=== PATIENT | male | born 1940 | race Caucasian/White ===

== ENCOUNTER → 2017-05-23 | Outpatient (CLI) | payer MEDICARE ==
[~2017-05-23] MED LIST: ASPI-1471 PO; ATOR20TA65 PO; BISO5TAB23 PO; GLIM4TAB50 PO; METF-420 PO; OMEG500C7 PO; OMEP40CA48 PO; [UNRECOGNIZED DRUG - REMARK]
== END ==
LOC: LAB 10:34
PROVIDERS: ATTEND Internal Medicine Cardiovascular Disease
DX: I50.9 Heart failure, unspecified (principal); I71.9 Aortic aneurysm of unspecified site, without rupture
CPT/HCPCS: 36415; 82310; 82374; 82435; 82565; 82947; 84132; 84295; 84520

== ENCOUNTER → 2017-05-28 | Outpatient (CLI) | payer MEDICARE ==
[~2017-05-28] MED LIST changes: +IOPAMIDOL 76% 100 ML INFUS BTL 100 ML ONE
--- NOTE | 2017-05-28 13:53 | RADIOLOGY IMAGING REPORT ---
[place] [facility] [place] NAME: Aba Ballard : 1940 MR: [id number] V: [id number] EXAM DATE: ORDERING PHYSICIAN: ROHIT MCDONOUGH TECHNOLOGIST: Location: [facility] Patient: Aba Ballard : 1940 Visit/Account:[id number] Date of Sevice: 05/28/2017 CTA of the chest with IV contrast EXAMINATION: CT angiogram of the thoracic aorta with IV contrast History: Thoracic aortic aneurysm, history of mitral valve and tricuspid valve replacements TECHNIQUE: Bolus thin section axial scans were obtained during maximal arterial opacification throu gh the chest. Reconstruction of the source data set includes mulitplanar 2D in the sagittal and coron al planes, and 3D coronal thin slab MIP series. Fruit Worker images have been stored on PACS. EKG g ating was used. One of the following dose optimization techniques was utilized in the performance of this exam: Autom ated exposure control; adjustment of the mA and/or kV according to the patient's size; or use of an i terative reconstruction technique. Specific details can be referenced in the facility's radiology C T exam operational policy. Contrast: 100 mL of IV Isovue-370. COMPARISON STUDIES: none. FINDINGS: Angiographic findings: Thoracic aorta: General Description : There is mild aneurysmal dilation of the mid ascending thoracic aorta gloria uring 4.2 cm maximally. No evidence for aortic dissection. Measurements: Sinotubular Junction : 3.2 cm Mid Ascending Aorta : 4.2 x 3.9 cm Proximal Aortic Arch : 3.2 cm Distal Aortic Arch : 2.5 cm Mid Descending Aorta : 2.5 cm Other vasculature: Postoperative changes are noted from mitral valve and tricuspid valve replacemen ts. There appears to be chronic partially calcified thrombus in the left atrium tracking into the left at rial appendage. The thrombus measures approximately 7.1 x 3.6 x 5.3 cm. Myocardial thinning involvi ng the left ventricular apex is noted. Coronary artery calcification is also noted.. Incidentally n oted is a bovine arch. Additional non-angiographic findings: There may be some nonobstructing stones in both kidneys. The osseous structures demonstrate a scoliosis with degenerative changes. Healed left anterior rib f ractures are noted. IMPRESSION: 1. Small ascending thoracic aneurysm measuring 4.2 cm maximally. No evidence for dissection. 2. Postoperative changes are noted from mitral valve and tricuspid valve replacements. 3. Chronic partially calcified thrombus is noted in the left atrium extending in the left atrial gal endage. Results were called to ROHIT MCDONOUGH at 05/28/2017 1:48 PM. Report Dictated By: Pieter Murillo MD at 05/28/2017 12:53 PM Report E-Signed By: Pieter Murillo MD at 05/28/2017 1:49 PM WSN:[id number]
== END ==
LOC: RAD 01:55
PROVIDERS: ATTEND Internal Medicine Cardiovascular Disease
DX: I71.2 Thoracic aortic aneurysm, without rupture (principal); Z95.2 Presence of prosthetic heart valve; I51.3 Intracardiac thrombosis, not elsewhere classified
CPT/HCPCS: 71275; Q9967

== ENCOUNTER 2017-07-25 15:50 | Emergency (ER) | payer MEDICARE ==
[~2017-07-25 15:50] MED LIST changes: -IOPAMIDOL 76% 100 ML INFUS BTL 100 ML ONE; -METF-420 PO; +METF-421 PO
--- NOTE | 2017-07-25 16:13 | ER Report ---
History and Physical Time Seen By MD: 16:13 Hx. of Stated Complaint: sent here by doc for rapid heart rate. no cp, has sob HPI/ROS CHIEF COMPLAINT: New-onset A. fib HISTORY OF PRESENT ILLNESS: This is a 76-year-old male who presents to the emergency department from his primary care provider's office for new-onset A. fib. Patient states that over the last 2 weeks he's had some increased cramping in his lower extremities more so when he is ambulating when he is resting seems to be okay. Patient did follow up with his primary care provider today they did some blood work and EKG and noted that his heart rate was irregular and in the 140s to 170s, Dr. Holly said this is a new onset atrial fibrillation. Patient was sent to the emergency department for further evaluation. Patient arrives alert and oriented and not short of breath, patient states he is only short of breath with ambulation. Patient denies history of atrial fibrillation. Patient denies chest pain although he does state he has some bandlike shortness of breath when he is ambulating. Patient is currently on oxygen. Patient has no other complaints. No nausea, vomiting, diarrhea, aches, chills or visual changes. REVIEW OF SYSTEMS: Constitutional: No fever, no chills. Eyes: No discharge. ENT: No sore throat. Cardiovascular: As above. Respiratory: As above. Gastrointestinal: No abdominal pain, no vomiting. Genitourinary: No hematuria. Musculoskeletal: No back pain. Skin: No rashes. Neurological: No headache. Allergies: Coded Allergies: No Known Drug Allergies (Verified , 07/25/17) Home Meds Active Scripts Diltiazem Hcl (DILTIAZEM 24HR CD) 180 Mg Cap.er.24h, 180 MG PO DAILY for 30 Days , #30 CAP Prov:JUVENAL ALMEIDA [facility]- 07/25/17 Rivaroxaban 20 Mg (XARELTO 20 MG) 20 Mg Tablet, 20 MG PO DAILY for 30 Days, #30 TAB 0 Refills Prov:JUVENAL ALMEIDA [facility]- 07/25/17 Reported Medications [place]-3 Fatty Acids (FISH OIL) 500 Mg Capsule, 500 MG PO, CAPSULE 04/06/15 Aspirin (ASPIR 81) 81 Mg Tablet.dr, 81 MG PO QDAY, TAB 04/06/15 Omeprazole (OMEPRAZOLE) 40 Mg Capsule.dr, 40 MG PO QDAY, CAP 04/06/15 Bisoprolol Fumarate (BISOPROLOL FUMARATE) 5 Mg Tablet, 5 MG PO QDAY, #10 TAB 04/06/15 Atorvastatin Calcium (ATORVASTATIN CALCIUM) 20 Mg Tablet, 1 TAB PO QDAY, TAB 04/06/15 Glimepiride (GLIMEPIRIDE) 4 Mg Tablet, 4 MG PO QDAY 04/06/15 Metformin Hcl (METFORMIN HCL) 1,000 Mg Tablet, 1 TAB PO BID, TAB 04/06/15 Past Medical/Surgical History The patient has a past medical and surgical history of hypercholesterolemia, hypertension, heart attack, sinus infections, GERD, prostate cancer, arthritis, radiation therapy for prostate cancer, tonsillectomy. Reviewed Nurses Notes: Yes Constitutional Vital Sign - Last 24 Hours 07/25/17 07/25/17 07/25/17 07/25/17 15:57 15:58 16:00 16:05 Pulse 167 149 Resp 20 22 B/P (MAP) 130/94 (106) 130/94 119/100 (106) Pulse Ox 88 O2 Delivery Room Air 07/25/17 07/25/17 07/25/17 07/25/17 16:18 16:20 16:30 16:35 Pulse 156 144 Resp 28 B/P (MAP) 107/93 (98) Pulse Ox 94 O2 Flow Rate 1.0 07/25/17 07/25/17 07/25/17 07/25/17 16:46 16:50 17:00 17:05 Pulse 147 121 Resp 29 19 B/P (MAP) 98/89 (92) 112/92 (99) Pulse Ox 93 93 07/25/17 07/25/17 07/25/17 07/25/17 17:20 17:35 17:40 17:55 Pulse 139 147 137 ??? Resp 30 24 27 Pulse Ox 93 93 07/25/17 07/25/17 07/25/17 07/25/17 18:00 18:10 18:25 18:30 Pulse 126 115 138 Resp 28 30 36 B/P (MAP) 117/85 (96) 119/86 (97) Pulse Ox 94 95 96 07/25/17 07/25/17 07/25/17 07/25/17 18:31 18:32 18:36 18:51 Pulse 120 131 112 Resp 26 28 23 B/P (MAP) 116/83 (94) Pulse Ox 95 90 93 07/25/17 07/25/17 07/25/17 07/25/17 19:00 19:06 19:21 19:30 Pulse 131 118 Resp 31 26 B/P (MAP) 105/92 (96) 101/84 (90) Pulse Ox 95 95 07/25/17 19:36 Pulse 128 Resp 22 Pulse Ox 92 Physical Exam General Appearance: The patient is alert, has no immediate need for airway protection and no signs of toxicity. Eyes: Pupils equal and round no pallor or injection. ENT, Mouth: Mucous membranes are moist. Respiratory: There are no retractions, lungs are clear to auscultation. Cardiovascular: A regular rate and rhythm, mechanical click, aortic valve replacement, no rubs. Gastrointestinal: Abdomen is soft and non tender, no masses, bowel sounds normal. Neurological: Alert and oriented 4. Moving all extremities. Following all commands. No focal neuro deficits. Skin: Warm and dry, no rashes. Musculoskeletal: Neck is supple non tender. Extremities are nontender, nonswollen and have full range of motion. DIFFERENTIAL DIAGNOSIS: After history and physical exam differential diagnosis was considered for shortness of breath including but not limited to pulmonary infectious process, COPD, asthma, pulmonary embolus and congestive heart failure.chest pain including but not limited to myocardial ischemia, pericarditis pulmonary embolus, chest wall pain, pleural inflammation and pulmonary infectious causes. Medical Decision Making Data Points Result Diagram: 07/25/17 1610 07/25/17 1610 Laboratory Hematology Test 07/25/17 16:10 Red Blood Count 4.61 M/uL (4.00-5.60) Mean Corpuscular Volume 94.1 fL (80.0-96.0) Mean Corpuscular Hemoglobin 32.4 pg (26.0-33.0) Mean Corpuscular Hemoglobin Concent 34.5 g/dL (32.0-36.0) Red Cell Distribution Width 14.2 % (11.5-14.5) Mean Platelet Volume 8.4 fL (7.2-11.1) Neutrophils (%) (Auto) 68.0 % (39.4-72.5) Lymphocytes (%) (Auto) 22.6 % (17.6-49.6) Monocytes (%) (Auto) 8.5 % (4.1-12.4) Eosinophils (%) (Auto) 0.5 % (0.4-6.7) Basophils (%) (Auto) 0.4 % (0.3-1.4) Nucleated RBC Relative Count (auto) 0.1 /100WBC Neutrophils # (Auto) 4.7 K/uL (2.0-7.4) Lymphocytes # (Auto) 1.6 K/uL (1.3-3.6) Monocytes # (Auto) 0.6 K/uL (0.3-1.0) Eosinophils # (Auto) 0.0 K/uL (0.0-0.5) Basophils # (Auto) 0.0 K/uL (0.0-0.1) Nucleated RBC Absolute Count (auto) 0.01 K/uL D-Dimer Quantitative (PE/DVT) 3.63 ug/ml (0-0.50) Sodium Level 140 mmol/L (137-145) Potassium Level 3.8 mmol/L (3.5-5.0) Chloride Level 103 mmol/L (98-107) Carbon Dioxide Level 20 mmol/L (22-30) Blood Urea Nitrogen 30 mg/dl (9-21) Creatinine 1.20 mg/dl (0.66-1.25) Glomerular Filtration Rate Calc 58.6 Random Glucose 206 mg/dl (75-110) Calcium Level 9.2 mg/dl (8.4-10.2) Total Bilirubin 1.3 mg/dl (0.2-1.3) Aspartate Amino Transf (AST/SGOT) 32 U/L (0-35) Alanine Aminotransferase (ALT/SGPT) 36 U/L (0-56) Alkaline Phosphatase 58 U/L (0-126) Troponin I < 0.012 ng/ml B-Type Natriuretic Peptide 244 pg/ml (0-100) Total Protein 7.0 gm/dl (6.3-8.2) Albumin 4.1 g/dl (3.5-5.0) Chemistry Test 07/25/17 16:10 White Blood Count 6.9 k/uL (4.5-11.0) Red Blood Count 4.61 M/uL (4.00-5.60) Hemoglobin 15.0 g/dL (14.0-18.0) Hematocrit 43.4 % (42.0-52.0) Mean Corpuscular Volume 94.1 fL (80.0-96.0) Mean Corpuscular Hemoglobin 32.4 pg (26.0-33.0) Mean Corpuscular Hemoglobin Concent 34.5 g/dL (32.0-36.0) Red Cell Distribution Width 14.2 % (11.5-14.5) Platelet Count 182 K/uL (150-450) Mean Platelet Volume 8.4 fL (7.2-11.1) Neutrophils (%) (Auto) 68.0 % (39.4-72.5) Lymphocytes (%) (Auto) 22.6 % (17.6-49.6) Monocytes (%) (Auto) 8.5 % (4.1-12.4) Eosinophils (%) (Auto) 0.5 % (0.4-6.7) Basophils (%) (Auto) 0.4 % (0.3-1.4) Nucleated RBC Relative Count (auto) 0.1 /100WBC Neutrophils # (Auto) 4.7 K/uL (2.0-7.4) Lymphocytes # (Auto) 1.6 K/uL (1.3-3.6) Monocytes # (Auto) 0.6 K/uL (0.3-1.0) Eosinophils # (Auto) 0.0 K/uL (0.0-0.5) Basophils # (Auto) 0.0 K/uL (0.0-0.1) Nucleated RBC Absolute Count (auto) 0.01 K/uL D-Dimer Quantitative (PE/DVT) 3.63 ug/ml (0-0.50) Glomerular Filtration Rate Calc 58.6 Calcium Level 9.2 mg/dl (8.4-10.2) Total Bilirubin 1.3 mg/dl (0.2-1.3) Aspartate Amino Transf (AST/SGOT) 32 U/L (0-35) Alanine Aminotransferase (ALT/SGPT) 36 U/L (0-56) Alkaline Phosphatase 58 U/L (0-126) Troponin I < 0.012 ng/ml B-Type Natriuretic Peptide 244 pg/ml (0-100) Total Protein 7.0 gm/dl (6.3-8.2) Albumin 4.1 g/dl (3.5-5.0) Coagulation Test 07/25/17 16:10 D-Dimer Quantitative (PE/DVT) 3.63 ug/ml EKG/Imaging EKG Interpretation 12 lead EKG: Time of EKG, 1600. Rhythm: Atrial fibrillation with RVR, rate 161 bpm. [place]: normal QRS: Right bundle branch block ST segments: No ST depression or elevation identified. No previous EKGs to compare to. 12 lead EKG: Time of repeat EKG 1857. Rhythm: Atrial fibrillation, RVR, ventricular rate 114 bpm. [place]: normal QRS: Right bundle branch block. ST segments: No ST depression or elevation identified. Imaging Location: Patient: Aba Ballard : 1940 Visit/Account:[id number] Date of Sevice: 07/25/2017 EXAMINATION: CTA of the chest with IV contrast HISTORY: Shortness of breath. New onset atrial fibrillation. Elevated d-dimer. TECHNIQUE: Pulmonary embolus protocol - Thin axial CT images of the chest were obtained with IV contrast during maximal pulmonary arterial opacification. Reconstruction of the source data includes multiplanar 2D coronal and sagittal reconstructed images, and 3D coronal and sagittal MIP images. Unloader images have been stored on PACS. One of the following dose optimization techniques was utilized in the performance of this exam: Automated exposure control; adjustment of the mA and/ or kV according to the patient's size; or use of an iterative reconstruction technique. Specific details can be referenced in the facility's radiology CT exam operational policy. Contrast: 100 mL of IV Isovue-370. COMPARISON: 05/28/2017. FINDINGS: Pulmonary arteries: The pulmonary arteries are well opacified, without suspicious filling defect. Heart, aorta, and great vessels: Stable mild aneurysmal dilatation of the ascending thoracic aorta, measuring 4.2 cm. Mild cardiac enlargement. Sternotomy with mitral and tricuspid valve replacements. Stable appearance of partially calcified and chronic-appearing mural thrombus in the left atrium and extending into the atrial appendage. No pericardial effusion. Lungs and pleura: There is a new moderate sized layering right pleural effusion , measuring up to 5.8 cm in AP thickness. Adjacent atelectasis in the right lower lobe posteriorly and inferiorly. Superimposed infiltrate is not excluded. The left lung is clear. The central airways are patent. Mediastinum and sharon: Small hiatal hernia. Visualized upper abdomen: Bilateral nonobstructing renal calculi in the partially visualized kidneys. Trace perisplenic and perihepatic fluid in the upper abdomen. Chest wall: Negative. Bones: No acute osseous findings. Multilevel degenerative changes throughout the spine. IMPRESSION: 1. No evidence of pulmonary embolism. 2. New moderate layering right pleural effusion. Adjacent atelectasis in the right lower lobe. Superimposed infiltrate is not excluded. 3. No other acute findings in the chest. 4. Postoperative changes with prior mitral and tricuspid valve replacement. 5. Stable appearance of chronic and partially calcified mural thrombus in the left atrium extending into the left atrial appendage. Report Dictated By: Hung Hale MD at 07/25/2017 6:22 PM Report E-Signed By: Hung Hale MD at 07/25/2017 6:29 PM [id number] ED Course/Re-evaluation Clinical Indication for ER IV: Hydration, IV Access ED Course 07/25/2017 4:35:29 pm patient has a chads 2 score of 3 points recommendation of anticoagulation. The patient was admitted to a room. A history of a score obtained. Differential diagnoses were considered. An IV was started. A CBC, CMP, troponin, BNP were obtained. D-dimer was obtained. CBC unremarkable. Chemistry showing BUN 30, blood sugar 206. EKG showing atrial fibrillation, RVR, right bundle branch block , initial rate was 160s to 170s. D-dimer was elevated at 3.63. I did review the lab studies and the elevated d-dimer with the patient initially was going to proceed with a chest x-ray but did forego the x-ray and proceeded with the CTA of the chest. Patient was given a total of 20 mg IV diltiazem which did bring the heart rate down to around [address] of the chest is showing no evidence of pulmonary embolism however it does show a new moderate layering right pleural effusion, chastened atelectasis in the right lower lobe with a possible superimposed infiltrate. Stable appearance of chronic and partially calcified thrombus in the left atrium extending into the left atrial appendage. I did review these results with the patient and my suggestion was with the new onset atrial fibrillation and the CT results that the patient consider inpatient evaluation for the A. fib and possible aspiration of the pleural effusion. The patient states he cannot stay in the hospital, he takes care of his at home and does not have anybody else here in town to help manage her care. I did discuss and review this case with Dr. Colby and he felt that it would be okay to send the patient home as long as the patient follows up with his primary care provider with close observation. I did tell the patient that we 'll need to start anticoagulation I did start him on 20 mg by mouth Xarelto as well as rate control for his atrial fibrillation started him on 180 mg of diltiazem. A prescription was sent to the patient's pharmacy for the Xarelto and diltiazem as well. The patient was instructed to call his primary care provider's office tomorrow for a follow-up in the morning or early next week. The patient was also instructed to return immediately for any increased shortness of breath, chest pain or any other concerning changes. Patient was in agreement with this plan of care and discharged home. Decision to Disposition Date: July 25, 2017 Decision to Disposition Time: 19:20 Depart Departure Latest Vital Signs Vital Signs Date Time Temp Pulse Resp B/P (MAP) Pulse Ox O2 Delivery O2 Flow Rate FiO2 07/25/17 19:36 128 22 92 07/25/17 19:30 101/84 (90) 07/25/17 16:18 1.0 07/25/17 15:58 Room Air Impression: Primary Impression: New onset atrial fibrillation Additional Impression: Pleural effusion Condition: Improved Disposition: HOME OR SELF-CARE Referrals: LILIA ORTIZ MD (PCP) New Scripts Diltiazem Hcl (DILTIAZEM 24HR CD) 180 Mg Cap.er.24h 180 MG PO DAILY for 30 Days, #30 CAP Prov: JUVENAL ALMEIDA [employer]- 07/25/17 Rivaroxaban 20 Mg (XARELTO 20 MG) 20 Mg Tablet 20 MG PO DAILY for 30 Days, #30 TAB 0 Refills Prov: JUVENAL ALMEIDA [facility]- 07/25/17 Patient Instructions: A-fib (Atrial Fibrillation) (ED), Diltiazem (AFib), Pleural Effusion (ED) Additional Instructions: Drink plenty of water. Get plenty of rest. Take the Xarelto 20 mg daily, you must follow-up with your primary care provider within 1-7 days. Take the diltiazem 180 mg extended release once a day, he must follow-up with your primary care provider within 1-7 days for reevaluation. Follow-up with Dr. Holly or Michele tomorrow. They will likely need to repeat a chest x-ray. You will likely need to have Your primary care provider order an echocardiogram too and follow up with a residential treatment counselor. Please return to the Ed for increased shortness of breath or chest pain or any other concerns. 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
[2017-07-25] MEDS ORDERED: NS(*) 0.9% 500 ML BAG 500 ML IV ONE (16:20)
[2017-07-25] MEDS ORDERED: DILTIAZEM 5 MG/ML 5ML IVPUSH IVP ONE (16:20)
--- NOTE | 2017-07-25 16:26 | EKG ---
FACILITY: [facility] PATIENT NAME: REYNA SOLIMAN : [id number] MR: [id number] V: [id number] EXAM DATE: ORDERING PHYSICIAN: JUVENAL ALMEIDA TECHNOLOGIST: MARY Mueller Reason : TACHYCARDIA Blood Pressure : / mmHG Vent. Rate : 161 BPM Atrial Rate : 104 BPM P-R Int : 000 ms QRS Dur : 138 ms QT Int : 330 ms P-R-T Axes : 000 -22 002 degrees QTc Int : 540 ms Atrial fibrillation with rapid ventricular response Right bundle branch block Abnormal ECG No previous ECGs available Confirmed by JESUS GOODE ([id number]) on 07/25/2017 7:16:53 PM Referred By: SHAHBAZ Confirmed By:JESUS GOODE
[2017-07-25 16:31] LABS: PLATELET COUNT, AUTOMATED 182 K/uL (150-450)
[2017-07-25] MEDS ORDERED: NS 0.9% 150 ML BAG 150 ML ONE (17:41)
[2017-07-25] MEDS ORDERED: IOPAMIDOL 76% 100 ML INFUS BTL 100 ML ONE (17:41)
--- NOTE | 2017-07-25 18:33 | RADIOLOGY IMAGING REPORT ---
FACILITY: [facility] PATIENT NAME: Aba Ballard : 1940 MR: [id number] V: [id number] EXAM DATE: ORDERING PHYSICIAN: JUVENAL ALMEIDA TECHNOLOGIST: Location: [facility] [place] Patient: Aba Ballard : 1940 Visit/Account:[id number] Date of Sevice: 07/25/2017 EXAMINATION: CTA of the chest with IV contrast HISTORY: Shortness of breath. New onset atrial fibrillation. Elevated d-dimer. TECHNIQUE: Pulmonary embolus protocol - Thin axial CT images of the chest were obtained with IV con trast during maximal pulmonary arterial opacification. Reconstruction of the source data includes mul tiplanar 2D coronal and sagittal reconstructed images, and 3D coronal and sagittal MIP images. Repres entative images have been stored on PACS. One of the following dose optimization techniques was utilized in the performance of this exam: Autom ated exposure control; adjustment of the mA and/or kV according to the patient's size; or use of an i terative reconstruction technique. Specific details can be referenced in the facility's radiology C T exam operational policy. Contrast: 100 mL of IV Isovue-370. COMPARISON: 05/28/2017. FINDINGS: Pulmonary arteries: The pulmonary arteries are well opacified, without suspicious filling defect. Heart, aorta, and great vessels: Stable mild aneurysmal dilatation of the ascending thoracic aorta, measuring 4.2 cm. Mild cardiac enlargement. Sternotomy with mitral and tricuspid valve replacements. Stable appearance of partially calcified and chronic-appearing mural thrombus in the left atrium and extending into the atrial appendage. No pericardial effusion. Lungs and pleura: There is a new moderate sized layering right pleural effusion, measuring up to 5.8 cm in AP thickness. Adjacent atelectasis in the right lower lobe posteriorly and inferiorly. Superim posed infiltrate is not excluded. The left lung is clear. The central airways are patent. Mediastinum and sharon: Small hiatal hernia. Visualized upper abdomen: Bilateral nonobstructing renal calculi in the partially visualized kidneys . Trace perisplenic and perihepatic fluid in the upper abdomen. Chest wall: Negative. Bones: No acute osseous findings. Multilevel degenerative changes throughout the spine. IMPRESSION: 1. No evidence of pulmonary embolism. 2. New moderate layering right pleural effusion. Adjacent atelectasis in the right lower lobe. Superi mposed infiltrate is not excluded. 3. No other acute findings in the chest. 4. Postoperative changes with prior mitral and tricuspid valve replacement. 5. Stable appearance of chronic and partially calcified mural thrombus in the left atrium extending i nto the left atrial appendage. Report Dictated By: Hung Hale MD at 07/25/2017 6:22 PM Report E-Signed By: Hung Hale MD at 07/25/2017 6:29 PM [id number]
[2017-07-25] MEDS ORDERED: RIVAROXABAN 10 MG TAB PO ONE ×2 (19:15→19:20)
[2017-07-25] MEDS ORDERED: DILTIAZEM CD 180 MG CAPCR PO ONE (19:15)
[2017-07-25] MEDS ORDERED: DILT180C4 PO (19:22)
[2017-07-25] MEDS ORDERED: RIVA20TA PO (19:22)
[2017-07-25 19:30] VITALS: BP 101/84
--- NOTE | 2017-07-25 19:43 | EKG ---
FACILITY: [facility] [place] PATIENT NAME: REYNA SOLIMAN : [id number] MR: [id number] V: [id number] EXAM DATE: ORDERING PHYSICIAN: JUVENAL ALMEIDA TECHNOLOGIST: SHUBHAM Test Reason : S/P A FIB Blood Pressure : / mmHG Vent. Rate : 114 BPM Atrial Rate : 127 BPM P-R Int : 000 ms QRS Dur : 144 ms QT Int : 388 ms P-R-T Axes : 000 006 -02 degrees QTc Int : 534 ms Atrial fibrillation with rapid ventricular response Right bundle branch block Abnormal ECG When compared with ECG of 25-JUL-2017 16:00, No significant change was found Confirmed by JESUS GOODE ([id number]) on 07/25/2017 8:51:21 PM Referred By: Confirmed By:JESUS GOODE
== END 2017-07-25 19:47 | disposition home or self-care (01) ==
LOC: ER 16:16
DX: I48.91 Unspecified atrial fibrillation (principal); J90 Pleural effusion, not elsewhere classified; I45.10 Unspecified right bundle-branch block; R94.31 Abnormal electrocardiogram [ECG] [EKG]
CPT/HCPCS: 83880; 84443; 84484; 85025; 85379; 93005; 96361; 96374; 99284; A9270; J3490; J7040; Q9967; 71275; 82040; 82247; 82310; 82374; 82435; 82565; 82947; 84075; 84132; 84155; 84295; 84450; 84460; 84520

== ENCOUNTER 2017-07-30 13:18 | Emergency (ER) | payer MEDICARE ==
[~2017-07-30 13:18] MED LIST changes: +DILT180C4 PO; +RIVA20TA PO
--- NOTE | 2017-07-30 13:26 | ER Report ---
History and Physical Time Seen By MD: 13:26 HPI/ROS CHIEF COMPLAINT: Rapid heart rate HISTORY OF PRESENT ILLNESS: This is a 76-year-old male who presents to the emergency department for a rapid heart rate. Patient was seen and evaluated in the emergency Department last week, diagnosed with new onset A. fib sent home with some relative and diltiazem, he did follow-up with his primary care provider and also did schedule a follow-up with cardiology. According to the patient he was also supposed to be on home oxygen however the person that's introverted the home oxygen did not contact him. He is been using his 's oxygen at home which does make him feel better". Patient denies chest pain he does however have intermittent shortness of breath or exertional. Patient has had intermittent nausea and vomiting and intermittent diarrhea however today he states he is feeling okay. No blood in any of the diarrhea or emesis. No aches or chills, no rashes no headaches or confusion. REVIEW OF SYSTEMS: Constitutional: No fever, no chills. Eyes: No discharge. ENT: No sore throat. Cardiovascular: No chest pain, no palpitations. Respiratory: As above. Gastrointestinal: As above. Genitourinary: No hematuria. Musculoskeletal: No back pain. Skin: No rashes. Neurological: No headache. Allergies: Coded Allergies: No Known Drug Allergies (Verified , 07/25/17) Home Meds Active Scripts Diltiazem Hcl (DILTIAZEM 24HR CD) 180 Mg Cap.er.24h, 180 MG PO DAILY for 30 Days , #30 CAP Prov:JUVENAL ALMEIDA [facility]- 07/25/17 Rivaroxaban 20 Mg (XARELTO 20 MG) 20 Mg Tablet, 20 MG PO DAILY for 30 Days, #30 TAB 0 Refills Prov:JUVENAL ALMEIDA [facility]- 07/25/17 Reported Medications [place]-3 Fatty Acids (FISH OIL) 500 Mg Capsule, 500 MG PO, CAPSULE 04/06/15 Aspirin (ASPIR 81) 81 Mg Tablet.dr, 81 MG PO QDAY, TAB 04/06/15 Omeprazole (OMEPRAZOLE) 40 Mg Capsule.dr, 40 MG PO QDAY, CAP 04/06/15 Bisoprolol Fumarate (BISOPROLOL FUMARATE) 5 Mg Tablet, 5 MG PO QDAY, #10 TAB 04/06/15 Atorvastatin Calcium (ATORVASTATIN CALCIUM) 20 Mg Tablet, 1 TAB PO QDAY, TAB 04/06/15 Glimepiride (GLIMEPIRIDE) 4 Mg Tablet, 4 MG PO QDAY 04/06/15 Metformin Hcl (METFORMIN HCL) 1,000 Mg Tablet, 1 TAB PO BID, TAB 04/06/15 Past Medical/Surgical History The patient has a past medical and surgical history of hypercholesterolemia, hypertension, heart attack, sinus infections, GERD, prostate cancer, arthritis, radiation therapy for prostate cancer, tonsillectomy. Reviewed Nurses Notes: Yes Hx Substance Use Disorder: No Hx Alcohol Use: No Constitutional Vital Sign - Last 24 Hours 07/30/17 07/30/17 07/30/17 07/30/17 13:18 13:23 13:25 13:30 Temp 97.7 Pulse ??? 170 Resp 16 B/P (MAP) 135/97 (110) 135/92 ???/??? (1665) Pulse Ox 85 O2 Delivery Room Air 07/30/17 07/30/17 07/30/17 07/30/17 13:33 13:40 13:48 14:00 Pulse 207 158 Resp 16 23 B/P (MAP) 142/108 (119) 114/110 (111) Pulse Ox 91 88 07/30/17 07/30/17 07/30/17 07/30/17 14:01 14:03 14:08 14:14 Pulse ? B/P (MAP) 119/106 (110) O2 Flow Rate 2.0 07/30/17 07/30/17 07/30/17 07/30/17 14:20 14:23 14:38 14:40 Pulse 115 118 Resp 25 29 B/P (MAP) 127/110 (116) 137/122 (127) Pulse Ox 90 89 07/30/17 07/30/17 07/30/17 07/30/17 14:45 14:53 15:00 15:08 Pulse 204 124 Resp 23 24 B/P (MAP) 113/57 (75) 93/74 (80) Pulse Ox 89 90 07/30/17 07/30/17 07/30/17 07/30/17 15:15 15:23 15:30 15:38 Pulse 201 181 Resp 41 19 B/P (MAP) 99/66 (77) 109/81 (90) Pulse Ox 90 90 07/30/17 07/30/17 07/30/17 15:45 15:53 16:00 Pulse 190 Resp 43 B/P (MAP) 99/73 (82) 103/75 (84) Pulse Ox 89 Physical Exam General Appearance: The patient is alert, has no immediate need for airway protection and no signs of toxicity. Eyes: Pupils equal and round no pallor or injection. ENT, Mouth: Mucous membranes are moist. Respiratory: There are no retractions, lungs are clear to auscultation. Cardiovascular: Irregular rate and rhythm, no murmurs, clicks or rubs. Gastrointestinal: Abdomen is soft and non tender, no masses, bowel sounds normal. Neurological: Alert and oriented 4. Moving all extremities. No focal neuro deficits. Following all commands. Skin: Warm and dry, no rashes. Musculoskeletal: Neck is supple non tender. Extremities are nontender, nonswollen and have full range of motion. DIFFERENTIAL DIAGNOSIS: After history and physical exam differential diagnosis was considered for shortness of breath including but not limited to pulmonary infectious process, COPD, asthma, pulmonary embolus and congestive heart failure. Medical Decision Making Data Points Result Diagram: 07/30/17 1335 07/30/17 1335 Laboratory Hematology Test 07/30/17 13:35 Red Blood Count 4.64 M/uL (4.00-5.60) Mean Corpuscular Volume 94.3 fL (80.0-96.0) Mean Corpuscular Hemoglobin 32.4 pg (26.0-33.0) Mean Corpuscular Hemoglobin Concent 34.3 g/dL (32.0-36.0) Red Cell Distribution Width 14.3 % (11.5-14.5) Mean Platelet Volume 7.7 fL (7.2-11.1) Neutrophils (%) (Auto) 68.8 % (39.4-72.5) Lymphocytes (%) (Auto) 22.4 % (17.6-49.6) Monocytes (%) (Auto) 7.7 % (4.1-12.4) Eosinophils (%) (Auto) 0.3 % (0.4-6.7) Basophils (%) (Auto) 0.8 % (0.3-1.4) Nucleated RBC Relative Count (auto) 0.0 /100WBC Neutrophils # (Auto) 5.3 K/uL (2.0-7.4) Lymphocytes # (Auto) 1.7 K/uL (1.3-3.6) Monocytes # (Auto) 0.6 K/uL (0.3-1.0) Eosinophils # (Auto) 0.0 K/uL (0.0-0.5) Basophils # (Auto) 0.1 K/uL (0.0-0.1) Nucleated RBC Absolute Count (auto) 0.00 K/uL Sodium Level 137 mmol/L (137-145) Potassium Level 3.7 mmol/L (3.5-5.0) Chloride Level 95 mmol/L (98-107) Carbon Dioxide Level 23 mmol/L (22-30) Blood Urea Nitrogen 16 mg/dl (9-21) Creatinine 0.90 mg/dl (0.66-1.25) Glomerular Filtration Rate Calc > 60.0 Random Glucose 184 mg/dl (75-110) Calcium Level 8.5 mg/dl (8.4-10.2) Total Bilirubin 1.6 mg/dl (0.2-1.3) Aspartate Amino Transf (AST/SGOT) 33 U/L (0-35) Alanine Aminotransferase (ALT/SGPT) 39 U/L (0-56) Alkaline Phosphatase 61 U/L (0-126) Troponin I 0.013 ng/ml Total Protein 6.9 gm/dl (6.3-8.2) Albumin 4.0 g/dl (3.5-5.0) Chemistry Test 07/30/17 13:35 White Blood Count 7.8 k/uL (4.5-11.0) Red Blood Count 4.64 M/uL (4.00-5.60) Hemoglobin 15.0 g/dL (14.0-18.0) Hematocrit 43.8 % (42.0-52.0) Mean Corpuscular Volume 94.3 fL (80.0-96.0) Mean Corpuscular Hemoglobin 32.4 pg (26.0-33.0) Mean Corpuscular Hemoglobin Concent 34.3 g/dL (32.0-36.0) Red Cell Distribution Width 14.3 % (11.5-14.5) Platelet Count 215 K/uL (150-450) Mean Platelet Volume 7.7 fL (7.2-11.1) Neutrophils (%) (Auto) 68.8 % (39.4-72.5) Lymphocytes (%) (Auto) 22.4 % (17.6-49.6) Monocytes (%) (Auto) 7.7 % (4.1-12.4) Eosinophils (%) (Auto) 0.3 % (0.4-6.7) Basophils (%) (Auto) 0.8 % (0.3-1.4) Nucleated RBC Relative Count (auto) 0.0 /100WBC Neutrophils # (Auto) 5.3 K/uL (2.0-7.4) Lymphocytes # (Auto) 1.7 K/uL (1.3-3.6) Monocytes # (Auto) 0.6 K/uL (0.3-1.0) Eosinophils # (Auto) 0.0 K/uL (0.0-0.5) Basophils # (Auto) 0.1 K/uL (0.0-0.1) Nucleated RBC Absolute Count (auto) 0.00 K/uL Glomerular Filtration Rate Calc > 60.0 Calcium Level 8.5 mg/dl (8.4-10.2) Total Bilirubin 1.6 mg/dl (0.2-1.3) Aspartate Amino Transf (AST/SGOT) 33 U/L (0-35) Alanine Aminotransferase (ALT/SGPT) 39 U/L (0-56) Alkaline Phosphatase 61 U/L (0-126) Troponin I 0.013 ng/ml Total Protein 6.9 gm/dl (6.3-8.2) Albumin 4.0 g/dl (3.5-5.0) EKG/Imaging EKG Interpretation 12 lead EKG:Time of EKG 1330 Rhythm: A. fib with RVR, rate of 157 BPM. . [place]: normal QRS: normal ST segments: No ST depression or elevation identified. Imaging Location: [facility] [place] Patient: Aba Ballard : 1940 Visit/Account:[id number] Date of Sevice: 07/30/2017 EXAMINATION: PA and Lateral Chest 07/30/2017 1:31 PM HISTORY: Shortness of breath at night. Patient has to sit up in bed at night. COMPARISON: CTA chest 07/25/2017, chest x-ray 01/31/2009 FINDINGS: Cardiomediastinal contours: Since 2008 patient has undergone sternotomy with mitral and tricuspid replacement. Heart size is mildly increased from 2008. Aorta is atherosclerotic. Lungs and pleura: Pulmonary vasculature is prominent and slightly indistinct. There are some reticular markings in the bases which may simply be atelectasis. Small bilateral effusions greater on the right than the left. Bones/soft tissues: Degenerative changes in the spine. Sternotomy is intact. IMPRESSION: In this patient status post mitral and tricuspid valve replacement findings are consistent with mild CHF. Report Dictated By: Adriel Leary MD at 07/30/2017 2:18 PM Report E-Signed By: Adriel Leary MD at 07/30/2017 2:21 PM WSN:[email or web address] ED Course/Re-evaluation Clinical Indication for ER IV: IV Access ED Course The patient was admitted to room. A history physical obtained. The rectal diagnoses were considered. An IV was started. A CBC, CMP, troponin were obtained. Lab studies unremarkable, negative troponin. Two-view chest x-ray showing mild CHF. EKG showing A. fib with RVR rate of 140s to 160s. Patient was given 20 mg IV diltiazem, patient responded well, heart rate down to the 100 to 110's. Patient states he is feeling much better. Patient was given a 180 mg oral dose of diltiazem extended release. The patient was also scheduled to receive oxygen at home however something happened and the home O2 order was never received therefore we did arrange for home oxygen while the patient was in the emergency department. Just prior to discharge the patient's heart rate was slowly increasing, I did give him one 5mg dose of IV diltiazem, HR did begin to slow. Giving the ER Cardizem time to work. The patient was instructed to continue taking his Diltiazem regularly at the same time daily in addition to continuing his regular medications. Patient states he is feeling better at the time of discharge. No other questions or concerns, discharged home. 07/30/2017 2:51:38 pm initial EKG showing A. fib with rate of 157, bedside monitor showing A. fib 114 bpm. Patient feeling much better. 07/30/2017 3:21:20 pm the patient was given oral diltiazem, heart rate 100 A. fib, continues to feel better, home oxygen has been ordered. 07/30/2017 4:11:27 pm The patient's HR steadily increasing while waiting for home oxygen. He was given a dose of oral dilt as well as a one time dose of 5mg IV. SBP >100 Decision to Disposition Date: July 30, 2017 Decision to Disposition Time: 16:20 Depart Departure Latest Vital Signs Vital Signs Date Time Temp Pulse Resp B/P (MAP) Pulse Ox O2 Delivery O2 Flow Rate FiO2 07/30/17 16:00 103/75 (84) 07/30/17 15:53 190 43 89 07/30/17 14:01 2.0 07/30/17 13:25 97.7 Room Air Impression: Primary Impression: Atrial fibrillation Additional Impressions: Dyspnea Hypoxia Condition: Improved Disposition: HOME OR SELF-CARE Referrals: LILIA ORTIZ MD (PCP) Departure Forms: ER Transition Record, Home Oxygen, Nebulizer RX, Home Oxygen Company Chosen by Patient: [facility] Durable Medical Equipment-Oxygen: Oxygen Concentrator, Portable Oxygen Gas Reason for Use/Diagnosis: hypoxia secondary to afib Start Date of the Order: July 30, 2017 Dosage or Concentration (if applicable) - LPM: 2 Route of Administration (if applicable): Nasal Cannula Frequency of Use: Continuous Duration Home O2 Required: 60 Duration Units: Days Room Air Oxygen Saturation: 85 ER Prescribing Physician's Name: Other NPI Numbers for Local ER MDs: Other Medications Reconciliation, Patient Portal Information Patient Instructions: A-fib (Atrial Fibrillation) (ED), Diltiazem (AFib) Additional Instructions: Drink plenty of water. Get plenty of rest. Continue taking your current medications. Keep your follow up appointment with cardiology and your primary care provider. Return to the ED for any other concerns or worsening symptoms. Problem Qualifiers Primary Impression: Atrial fibrillation Atrial fibrillation type: unspecified Qualified Codes: I48.91 - Unspecified atrial fibrillation Additional Impressions: Dyspnea Dyspnea type: unspecified Qualified Codes: R06.00 - Dyspnea, unspecified JUVENAL ALMEIDAP-BC July 30, 2017 13:26
[2017-07-30] MEDS ORDERED: DILTIAZEM 5 MG/ML 5ML IVPUSH IVP ONE ×2 (13:35→16:10)
--- NOTE | 2017-07-30 13:45 | EKG ---
FACILITY: [facility] [place] PATIENT NAME: REYNA SOLIMAN : [id number] MR: [id number] V: [id number] EXAM DATE: ORDERING PHYSICIAN: JUVENAL ALMEIDA TECHNOLOGIST: JAMES Mueller Reason : A-FIB \ TACHY Blood Pressure : / mmHG Vent. Rate : 157 BPM Atrial Rate : 136 BPM P-R Int : 000 ms QRS Dur : 142 ms QT Int : 340 ms P-R-T Axes : 000 -10 021 degrees QTc Int : 549 ms Atrial fibrillation with rapid ventricular response Right bundle branch block Abnormal ECG When compared with ECG of 25-JUL-2017 18:57, No significant change was found Confirmed by JESUS GOODE ([id number]) on 07/30/2017 10:37:05 PM Referred By: GETACHEW Confirmed By:JESUS GOODE
[2017-07-30 13:49] LABS: PLATELET COUNT, AUTOMATED 215 K/uL (150-450)
--- NOTE | 2017-07-30 14:24 | RADIOLOGY IMAGING REPORT ---
FACILITY: [facility] PATIENT NAME: Aba Ballard : 1940 MR: [id number] V: [id number] EXAM DATE: ORDERING PHYSICIAN: JUVENAL ALMEIDA TECHNOLOGIST: Location: [facility] [place] Patient: Aba Ballard : 1940 Visit/Account:[id number] Date of Sevice: 07/30/2017 EXAMINATION: PA and Lateral Chest 07/30/2017 1:31 PM HISTORY: Shortness of breath at night. Patient has to sit up in bed at night. COMPARISON: CTA chest 07/25/2017, chest x-ray 01/31/2009 FINDINGS: Cardiomediastinal contours: Since 2008 patient has undergone sternotomy with mitral and tricuspid rep lacement. Heart size is mildly increased from 2008. Aorta is atherosclerotic. Lungs and pleura: Pulmonary vasculature is prominent and slightly indistinct. There are some reticul ar markings in the bases which may simply be atelectasis. Small bilateral effusions greater on the r ight than the left. Bones/soft tissues: Degenerative changes in the spine. Sternotomy is intact. IMPRESSION: In this patient status post mitral and tricuspid valve replacement findings are consisten t with mild CHF. Report Dictated By: Adriel Leary MD at 07/30/2017 2:18 PM Report E-Signed By: Adriel Leary MD at 07/30/2017 2:21 PM WSN:[email or web address]
[2017-07-30] MEDS ORDERED: DILTIAZEM CD 180 MG CAPCR PO ONE (14:30)
[2017-07-30 16:00] VITALS: BP 103/75
== END 2017-07-30 16:00 | disposition home or self-care (01) ==
LOC: ER 13:26
DX: I48.91 Unspecified atrial fibrillation (principal); R06.00 Dyspnea, unspecified; R09.02 Hypoxemia; I45.10 Unspecified right bundle-branch block; R94.31 Abnormal electrocardiogram [ECG] [EKG]
CPT/HCPCS: 71046; 84484; 85025; 93005; 96374; 96376; 99284; A9270; J3490; 82040; 82247; 82310; 82374; 82435; 82565; 82947; 84075; 84132; 84155; 84295; 84450; 84460; 84520

== ENCOUNTER 2017-08-08 10:32 | Emergency (ER) | payer MEDICARE ==
[2017-08-08] MEDS ORDERED: DILTIAZEM 5 MG/ML 5ML IVPUSH IVP ONE ×2 (10:55→11:10)
[2017-08-08 11:05] LABS: PLATELET COUNT, AUTOMATED 223 K/uL (150-450)
[2017-08-08 11:11] LABS: INR 2.32
[2017-08-08] MEDS ORDERED: DILTIAZEM HCL* 100 MG ADDVIAL 100 MG in NS(*) 0.9% 100 ML ADDVANT BAG 100 ML IV SCH (11:50)
[2017-08-08 12:00] VITALS: BP 111/89
--- NOTE | 2017-08-08 12:03 | ER Report ---
History and Physical Time Seen By MD: 10:45 Hx. of Stated Complaint: SENT HERE BY HIS DOC FOR FAST HEART RATE, 185 AT HOME HPI/ROS CHIEF COMPLAINT: A. fib RVR HISTORY OF PRESENT ILLNESS: Patient is a 76-year-old male here with complaints of hypertension with a recent diagnosis of A. fib RVR on xarelto. Patient was most recently evaluated on the for similar symptoms. Patient denies rest pain, shortness breath, fevers, chills, abdominal pain, nausea, vomiting. Hypertension/tachycardia prompted his evaluation today with a pulse rate in the 180s. Patient is currently taking 180 mg of diltiazem orally twice a day. Patient is well-appearing at time of evaluation, asymptomatic, hemodynamically stable. REVIEW OF SYSTEMS: Constitutional: No fever, no chills. Eyes: No discharge. ENT: No sore throat. Cardiovascular: Irregular, rapid Respiratory: No cough, no shortness of breath. Gastrointestinal: No abdominal pain, no vomiting. Genitourinary: No hematuria. Musculoskeletal: No back pain. Skin: No rashes. Neurological: No headache. Allergies: Coded Allergies: No Known Drug Allergies (Verified , 08/08/17) Home Meds Active Scripts Diltiazem Hcl (DILTIAZEM 24HR CD) 180 Mg Cap.er.24h, 180 MG PO DAILY for 30 Days , #30 CAP Prov:JUVENAL ALMEIDA [facility] 07/25/17 Rivaroxaban 20 Mg (XARELTO 20 MG) 20 Mg Tablet, 20 MG PO DAILY for 30 Days, #30 TAB 0 Refills Prov:JUVENAL ALMEIDA [facility] 07/25/17 Reported Medications [place]-3 Fatty Acids (FISH OIL) 500 Mg Capsule, 500 MG PO, CAPSULE 04/06/15 Aspirin (ASPIR 81) 81 Mg Tablet.dr, 81 MG PO QDAY, TAB 04/06/15 Omeprazole (OMEPRAZOLE) 40 Mg Capsule.dr, 40 MG PO QDAY, CAP 04/06/15 Bisoprolol Fumarate (BISOPROLOL FUMARATE) 5 Mg Tablet, 5 MG PO QDAY, #10 TAB 04/06/15 Atorvastatin Calcium (ATORVASTATIN CALCIUM) 20 Mg Tablet, 1 TAB PO QDAY, TAB 04/06/15 Glimepiride (GLIMEPIRIDE) 4 Mg Tablet, 4 MG PO QDAY 04/06/15 Metformin Hcl (METFORMIN HCL) 1,000 Mg Tablet, 1 TAB PO BID, TAB 04/06/15 Hx Substance Use Disorder: No Hx Alcohol Use: No Constitutional Vital Sign - Last 24 Hours 08/08/17 08/08/17 08/08/17 08/08/17 10:32 10:36 10:37 10:39 Temp 97.8 Pulse ??? 176 ??? Resp 28 B/P (MAP) 136/102 136/102 (113) Pulse Ox 92 O2 Delivery Nasal Cannula 08/08/17 08/08/17 08/08/17 08/08/17 10:42 10:42 10:47 10:52 Pulse 123 172 223 Resp 28 27 43 Pulse Ox 93 92 93 O2 Flow Rate 2.0 08/08/17 08/08/17 08/08/17 08/08/17 10:57 11:00 11:02 11:07 Pulse 188 149 151 Resp 23 15 26 B/P (MAP) 98/85 (89) 105/95 (98) Pulse Ox 93 93 91 08/08/17 08/08/17 08/08/17 08/08/17 11:12 11:15 11:17 11:22 Pulse 177 236 223 Resp 23 27 22 B/P (MAP) 113/91 (98) Pulse Ox 91 92 92 08/08/17 08/08/17 08/08/17 08/08/17 11:27 11:30 11:32 11:37 Pulse 200 217 229 Resp 16 23 B/P (MAP) 113/79 (90) Pulse Ox 92 92 08/08/17 08/08/17 08/08/17 08/08/17 11:42 11:45 11:47 11:52 Pulse 177 214 148 Resp 26 23 24 B/P (MAP) 120/99 (106) Pulse Ox 92 91 92 08/08/17 08/08/17 08/08/17 11:57 12:00 12:02 Pulse 181 156 Resp 25 24 B/P (MAP) 111/89 (96) Pulse Ox 91 93 Intake and Output 08/08/17 08/08/17 08/09/17 15:00 23:00 07:00 Intake Total 28.3 ml Balance 28.3 ml Physical Exam General Appearance: The patient is alert, has no immediate need for airway protection and no signs of toxicity. NAD Eyes: Pupils equal and round no pallor or injection. ENT, Mouth: Mucous membranes are moist. Respiratory: There are no retractions, lungs are clear to auscultation. Cardiovascular: Irregular rate and rhythm. tachycardic Gastrointestinal: Abdomen is soft and non tender, no masses, bowel sounds normal. Neurological: No focal deficits Skin: Warm and dry, no rashes. Musculoskeletal: Neck is supple non tender. Extremities are nontender, nonswollen and have full range of motion. DIFFERENTIAL DIAGNOSIS: After history and physical exam differential diagnosis was considered for infection, fluid overload, dehydration, A. fib RVR precipitation Medical Decision Making Data Points Result Diagram: 08/08/17 1047 08/08/17 1047 Laboratory Hematology Test 08/08/17 10:47 Red Blood Count 4.60 M/uL (4.00-5.60) Mean Corpuscular Volume 95.2 fL (80.0-96.0) Mean Corpuscular Hemoglobin 32.1 pg (26.0-33.0) Mean Corpuscular Hemoglobin Concent 33.7 g/dL (32.0-36.0) Red Cell Distribution Width 14.4 % (11.5-14.5) Mean Platelet Volume 7.7 fL (7.2-11.1) Neutrophils (%) (Auto) 68.7 % (39.4-72.5) Lymphocytes (%) (Auto) 21.2 % (17.6-49.6) Monocytes (%) (Auto) 8.7 % (4.1-12.4) Eosinophils (%) (Auto) 0.7 % (0.4-6.7) Basophils (%) (Auto) 0.7 % (0.3-1.4) Nucleated RBC Relative Count (auto) 0.0 /100WBC Neutrophils # (Auto) 4.4 K/uL (2.0-7.4) Lymphocytes # (Auto) 1.4 K/uL (1.3-3.6) Monocytes # (Auto) 0.6 K/uL (0.3-1.0) Eosinophils # (Auto) 0.0 K/uL (0.0-0.5) Basophils # (Auto) 0.0 K/uL (0.0-0.1) Nucleated RBC Absolute Count (auto) 0.00 K/uL Peripheral Blood Smear No Y/N Prothrombin Time 26.2 seconds (12.0-14.4) Prothromb Time International Ratio 2.32 Activated Partial Thromboplast Time 41 seconds (23-35) Sodium Level 139 mmol/L (137-145) Potassium Level 4.1 mmol/L (3.5-5.0) Chloride Level 96 mmol/L (98-107) Carbon Dioxide Level 26 mmol/L (22-30) Blood Urea Nitrogen 13 mg/dl (9-21) Creatinine 0.90 mg/dl (0.66-1.25) Glomerular Filtration Rate Calc > 60.0 Random Glucose 210 mg/dl (75-110) Calcium Level 8.8 mg/dl (8.4-10.2) Total Bilirubin 1.3 mg/dl (0.2-1.3) Aspartate Amino Transf (AST/SGOT) 31 U/L (0-35) Alanine Aminotransferase (ALT/SGPT) 29 U/L (0-56) Alkaline Phosphatase 64 U/L (0-126) Troponin I 0.020 ng/ml B-Type Natriuretic Peptide 191 pg/ml (0-100) Total Protein 7.2 gm/dl (6.3-8.2) Albumin 4.1 g/dl (3.5-5.0) Chemistry Test 08/08/17 10:47 White Blood Count 6.4 k/uL (4.5-11.0) Red Blood Count 4.60 M/uL (4.00-5.60) Hemoglobin 14.7 g/dL (14.0-18.0) Hematocrit 43.8 % (42.0-52.0) Mean Corpuscular Volume 95.2 fL (80.0-96.0) Mean Corpuscular Hemoglobin 32.1 pg (26.0-33.0) Mean Corpuscular Hemoglobin Concent 33.7 g/dL (32.0-36.0) Red Cell Distribution Width 14.4 % (11.5-14.5) Platelet Count 223 K/uL (150-450) Mean Platelet Volume 7.7 fL (7.2-11.1) Neutrophils (%) (Auto) 68.7 % (39.4-72.5) Lymphocytes (%) (Auto) 21.2 % (17.6-49.6) Monocytes (%) (Auto) 8.7 % (4.1-12.4) Eosinophils (%) (Auto) 0.7 % (0.4-6.7) Basophils (%) (Auto) 0.7 % (0.3-1.4) Nucleated RBC Relative Count (auto) 0.0 /100WBC Neutrophils # (Auto) 4.4 K/uL (2.0-7.4) Lymphocytes # (Auto) 1.4 K/uL (1.3-3.6) Monocytes # (Auto) 0.6 K/uL (0.3-1.0) Eosinophils # (Auto) 0.0 K/uL (0.0-0.5) Basophils # (Auto) 0.0 K/uL (0.0-0.1) Nucleated RBC Absolute Count (auto) 0.00 K/uL Peripheral Blood Smear No Y/N Prothrombin Time 26.2 seconds (12.0-14.4) Prothromb Time International Ratio 2.32 Activated Partial Thromboplast Time 41 seconds (23-35) Glomerular Filtration Rate Calc > 60.0 Calcium Level 8.8 mg/dl (8.4-10.2) Total Bilirubin 1.3 mg/dl (0.2-1.3) Aspartate Amino Transf (AST/SGOT) 31 U/L (0-35) Alanine Aminotransferase (ALT/SGPT) 29 U/L (0-56) Alkaline Phosphatase 64 U/L (0-126) Troponin I 0.020 ng/ml B-Type Natriuretic Peptide 191 pg/ml (0-100) Total Protein 7.2 gm/dl (6.3-8.2) Albumin 4.1 g/dl (3.5-5.0) Coagulation Test 08/08/17 10:47 Prothrombin Time 26.2 seconds Prothromb Time International Ratio 2.32 Activated Partial Thromboplast Time 41 seconds ED Course/Re-evaluation ED Course Patient is a 76-year-old male here with A. fib RVR which was recently diagnosed and the patient was placed on xarelto. He is planned for a cardiology appointment next week. Patient remains asymptomatic and hemodynamically stable at time of evaluation. He is tachycardic with an irregular rhythm in the 180 on initial evaluation. Patient was given diltiazem boluses for control. Labs were unremarkable. EKG confirmed afib RVR. Patient was given diltiazem infusion and then given oral diltiazem 180 mg and titrated off of trip. Patient was advised to follow up with scrap charger as previously scheduled. The patient remained asymptomatic throughout course of treatment. Decision to Disposition Date: August 08, 2017 Decision to Disposition Time: 14:57 Depart Departure Latest Vital Signs Vital Signs Date Time Temp Pulse Resp B/P (MAP) Pulse Ox O2 Delivery O2 Flow Rate FiO2 08/08/17 12:02 156 24 93 08/08/17 12:00 111/89 (96) 08/08/17 10:42 2.0 08/08/17 10:36 97.8 Nasal Cannula Impression: Primary Impression: Atrial fibrillation Condition: Improved Disposition: HOME OR SELF-CARE Referrals: LILIA ORTIZ MD (PCP) Patient Instructions: Diltiazem (AFib) Additional Instructions: Continue medications as previously prescribed. He was given extra diltiazem as well as a single dose of oral diltiazem to slow down your heart rate. Please follow up with her scrap charger as previously scheduled. Please return promptly if he develop chest pain, shortness breath, weakness, lightheadedness, fevers or chills. ALEXANDRA JOHNSTON DO August 08, 2017 12:03
--- NOTE | 2017-08-08 12:04 | EKG ---
FACILITY: [facility] PATIENT NAME: REYNA SOLIMAN : [id number] MR: [id number] V: [id number] EXAM DATE: ORDERING PHYSICIAN: ALEXANDRA JOHNSTON TECHNOLOGIST: MARY Mueller Reason : TACHYCARDIA Blood Pressure : / mmHG Vent. Rate : 160 BPM Atrial Rate : 136 BPM P-R Int : 000 ms QRS Dur : 134 ms QT Int : 330 ms P-R-T Axes : 000 -24 010 degrees QTc Int : 538 ms Atrial fibrillation with rapid ventricular response Right bundle branch block Relatively unchanged from previous Confirmed by JESUS GOODE ([id number]) on 08/08/2017 2:39:51 PM Referred By: PRESTON Confirmed By:JESUS GOODE
[2017-08-08] MEDS ORDERED: DILTIAZEM CD 180 MG CAPCR PO ONE (14:20)
== END 2017-08-08 15:07 | disposition home or self-care (01) ==
LOC: ER 10:44
DX: I48.91 Unspecified atrial fibrillation (principal); Z79.01 Long term (current) use of anticoagulants
CPT/HCPCS: 83880; 84484; 85025; 85610; 85730; 93005; 96361; 96374; 99284; A9270; J3490; J7050; 82040; 82247; 82310; 82374; 82435; 82565; 82947; 84075; 84132; 84155; 84295; 84450; 84460; 84520

== ENCOUNTER 2017-08-10 17:54 | Emergency (ER) | payer MEDICARE ==
--- NOTE | 2017-08-10 18:09 | ER Report ---
History and Physical Time Seen By MD: 18:09 Hx. of Stated Complaint: HIGH HEART RATE, SOB. STARTED WHEN HE WOKE UP FROM HIS NAP AT 5PM. RELATIVE STATES HE WAS LIKE THIS THIS MORNING BUT HAD FORGOTEN TO TAKE A MED. TOOK HIS MEDS AND HE WAS BETTER UNTIL HIS NAP HPI/ROS CHIEF COMPLAINT: Rapid heart rate HISTORY OF PRESENT ILLNESS: 76-year-old male patient presents to emergency room with complaint of rapid heart rate. Patient has a history of atrial fibrillation with a rapid ventricular response. Patient states he was started on diltiazem in the past. He states that he's had that increased retaking 180 mg twice a day. Patient states that today he forgot to take it this morning, he took a dose and his heart rate slowed down. He states that he was feeling fine until he took his nap. We will go from his nap he had an elevated heart rate. He was also feeling slightly short of breath. He checked his pulse and was found to be greater than 150. He did come into the emergency room for evaluation and she's been told in the past if his heart rate gets over 150 that he needs be evaluated. Patient denies any nausea, vomiting, diarrhea, chest pain , fevers chills. Patient states that he has been taking his medication as prescribed. REVIEW OF SYSTEMS: Respiratory: As noted above Cardiovascular: As noted above Gastrointestinal: No vomiting, no abdominal pain. Musculoskeletal: No back pain. Allergies: Coded Allergies: No Known Drug Allergies (Verified , 08/10/17) Home Meds Active Scripts Diltiazem Hcl (DILTIAZEM 24HR CD) 180 Mg Cap.er.24h, 180 MG PO DAILY for 30 Days , #30 CAP Prov:[facility]- 07/25/17 Rivaroxaban 20 Mg (XARELTO 20 MG) 20 Mg Tablet, 20 MG PO DAILY for 30 Days, #30 TAB 0 Refills Prov:[facility]- 07/25/17 Reported Medications [place]-3 Fatty Acids (FISH OIL) 500 Mg Capsule, 500 MG PO, CAPSULE 04/06/15 Aspirin (ASPIR 81) 81 Mg Tablet.dr, 81 MG PO QDAY, TAB 04/06/15 Omeprazole (OMEPRAZOLE) 40 Mg Capsule.dr, 40 MG PO QDAY, CAP 04/06/15 Bisoprolol Fumarate (BISOPROLOL FUMARATE) 5 Mg Tablet, 5 MG PO QDAY, #10 TAB 04/06/15 Atorvastatin Calcium (ATORVASTATIN CALCIUM) 20 Mg Tablet, 1 TAB PO QDAY, TAB 04/06/15 Glimepiride (GLIMEPIRIDE) 4 Mg Tablet, 4 MG PO QDAY 04/06/15 Metformin Hcl (METFORMIN HCL) 1,000 Mg Tablet, 1 TAB PO BID, TAB 04/06/15 Past Medical/Surgical History Patient has a past medical history of hyperlipidemia, [place], A. fib, hypertension, reflux, prostate cancer, arthritis. Patient has surgical history of tricuspid and mitral valve repair, tonsillectomy. Reviewed Nurses Notes: Yes Hx Substance Use Disorder: No Hx Alcohol Use: No Constitutional Vital Sign - Last 24 Hours 08/10/17 08/10/17 08/10/17 08/10/17 17:54 18:01 18:03 18:09 Temp 97.8 Pulse ??? 160 157 Resp 20 20 B/P (MAP) 142/98 142/98 (113) Pulse Ox 90 91 O2 Delivery Room Air 08/10/17 08/10/17 08/10/17 08/10/17 18:12 18:24 18:28 18:30 Pulse 146 Resp 23 B/P (MAP) 100/85 (90) 118/90 (99) Pulse Ox 90 O2 Flow Rate 3.0 08/10/17 08/10/17 08/10/17 08/10/17 18:39 18:45 18:54 18:59 Pulse ??? 156 164 Resp 35 19 B/P (MAP) 131/106 (114) Pulse Ox 91 89 08/10/17 08/10/17 08/10/17 08/10/17 19:00 19:14 19:15 19:29 Pulse 113 175 Resp 18 13 B/P (MAP) 99/82 (88) 104/82 (89) Pulse Ox 92 90 08/10/17 08/10/17 19:30 19:44 Pulse ??? B/P (MAP) 121/107 (112) Physical Exam General Appearance: The patient is alert, has no immediate need for airway protection and no current signs of toxicity. Respiratory: Chest is non tender, lungs are clear to auscultation. Cardiac: Patient has irregularly irregular heart rate that is tachycardic with a ventricular rate of 140 bpm. Gastrointestinal: Abdomen is soft and non tender, no masses, bowel sounds normal. Musculoskeletal: Neck: Neck is supple and non tender. Extremities have full range of motion and are non tender. Skin: No rashes or lesions. DIFFERENTIAL DIAGNOSIS: After history and physical exam differential diagnosis was considered for a fibrillation with rapid ventricular response, [place], pneumonia. Medical Decision Making Data Points Result Diagram: 08/10/172 08/10/172 Laboratory Hematology Test 08/10/17 18:12 Red Blood Count 4.46 M/uL (4.00-5.60) Mean Corpuscular Volume 94.6 fL (80.0-96.0) Mean Corpuscular Hemoglobin 32.9 pg (26.0-33.0) Mean Corpuscular Hemoglobin Concent 34.8 g/dL (32.0-36.0) Red Cell Distribution Width 14.1 % (11.5-14.5) Mean Platelet Volume 7.8 fL (7.2-11.1) Neutrophils (%) (Auto) 63.9 % (39.4-72.5) Lymphocytes (%) (Auto) 24.9 % (17.6-49.6) Monocytes (%) (Auto) 9.3 % (4.1-12.4) Eosinophils (%) (Auto) 1.4 % (0.4-6.7) Basophils (%) (Auto) 0.5 % (0.3-1.4) Nucleated RBC Relative Count (auto) 0.0 /100WBC Neutrophils # (Auto) 4.2 K/uL (2.0-7.4) Lymphocytes # (Auto) 1.7 K/uL (1.3-3.6) Monocytes # (Auto) 0.6 K/uL (0.3-1.0) Eosinophils # (Auto) 0.1 K/uL (0.0-0.5) Basophils # (Auto) 0.0 K/uL (0.0-0.1) Nucleated RBC Absolute Count (auto) 0.00 K/uL Sodium Level 137 mmol/L (137-145) Potassium Level 3.9 mmol/L (3.5-5.0) Chloride Level 95 mmol/L (98-107) Carbon Dioxide Level 26 mmol/L (22-30) Blood Urea Nitrogen 12 mg/dl (9-21) Creatinine 0.90 mg/dl (0.66-1.25) Glomerular Filtration Rate Calc > 60.0 Random Glucose 166 mg/dl (75-110) Calcium Level 9.1 mg/dl (8.4-10.2) Total Bilirubin 1.0 mg/dl (0.2-1.3) Aspartate Amino Transf (AST/SGOT) 27 U/L (0-35) Alanine Aminotransferase (ALT/SGPT) 26 U/L (0-56) Alkaline Phosphatase 64 U/L (0-126) Troponin I 0.026 ng/ml Total Protein 6.0 gm/dl (6.3-8.2) Albumin 4.2 g/dl (3.5-5.0) Chemistry Test 08/10/17 18:12 White Blood Count 6.6 k/uL (4.5-11.0) Red Blood Count 4.46 M/uL (4.00-5.60) Hemoglobin 14.7 g/dL (14.0-18.0) Hematocrit 42.2 % (42.0-52.0) Mean Corpuscular Volume 94.6 fL (80.0-96.0) Mean Corpuscular Hemoglobin 32.9 pg (26.0-33.0) Mean Corpuscular Hemoglobin Concent 34.8 g/dL (32.0-36.0) Red Cell Distribution Width 14.1 % (11.5-14.5) Platelet Count 206 K/uL (150-450) Mean Platelet Volume 7.8 fL (7.2-11.1) Neutrophils (%) (Auto) 63.9 % (39.4-72.5) Lymphocytes (%) (Auto) 24.9 % (17.6-49.6) Monocytes (%) (Auto) 9.3 % (4.1-12.4) Eosinophils (%) (Auto) 1.4 % (0.4-6.7) Basophils (%) (Auto) 0.5 % (0.3-1.4) Nucleated RBC Relative Count (auto) 0.0 /100WBC Neutrophils # (Auto) 4.2 K/uL (2.0-7.4) Lymphocytes # (Auto) 1.7 K/uL (1.3-3.6) Monocytes # (Auto) 0.6 K/uL (0.3-1.0) Eosinophils # (Auto) 0.1 K/uL (0.0-0.5) Basophils # (Auto) 0.0 K/uL (0.0-0.1) Nucleated RBC Absolute Count (auto) 0.00 K/uL Glomerular Filtration Rate Calc > 60.0 Calcium Level 9.1 mg/dl (8.4-10.2) Total Bilirubin 1.0 mg/dl (0.2-1.3) Aspartate Amino Transf (AST/SGOT) 27 U/L (0-35) Alanine Aminotransferase (ALT/SGPT) 26 U/L (0-56) Alkaline Phosphatase 64 U/L (0-126) Troponin I 0.026 ng/ml Total Protein 6.0 gm/dl (6.3-8.2) Albumin 4.2 g/dl (3.5-5.0) EKG/Imaging EKG Interpretation 12 lead EKG: Rhythm: A fibrillation with rapid ventricular response with a ventricular rate of 140 bpm [place]: Left axis deviation QRS: Right bundle branch block ST segments: normal Imaging Examination: CHEST PA AND LAT Comparison: 07/30/2017 and earlier. History: rapid rate, shortness of breath Findings: Right greater than left small pleural effusions are little changed. Lung base atelectasis. Pulmonary vascular congestion but no definite evidence of edema. No pneumothorax. Cardiac and hilar contour is mildly enlarged. Sternotomy and valve replacement. No acute osseous abnormality. IMPRESSION: Minimally changed right greater than left small pleural effusions. There is vascular congestion but no definite evidence of pulmonary edema. Report Dictated By: Rey Strong MD at 08/10/2017 7:00 PM Report E-Signed By: Rey Strong MD at 08/10/2017 7:03 PM ED Course/Re-evaluation ED Course Patient was admitted in exam room, history and physical were obtained. Differential diagnoses were considered. On examination patient has an irregularly irregular heart rate with a rapid rate. Patient was in the 140s to 160s. Patient states it is feeling short of breath this time. An IV was started , CBC, CMP, troponin, EKG, chest x-ray were done. EKG shows a atrial fibrillation with rapid ventricular response, with patient being symptomatic being short of breath. See if a 20 mg IV push dose of diltiazem. With him taking 180 mg of diltiazem twice a day we did go ahead and give him 120 mg orally. On reevaluation patient states he is feeling better, he states he is not having any shortness of breath. His heart rate is still in between 120 and 160 bpm. However with him feeling better I did give him the option to be admitted or to go home. Patient states that he will go ahead and take his medication and would prefer to go home. The labs were unremarkable, troponin was 0.026. We will go ahead and discharge the patient at this time. He is to follow-up with cardiology on Saturday as previous scheduled. He is return to the emergency room if condition worsens. Decision to Disposition Date: Aug 10, 2017 Decision to Disposition Time: 19:29 Depart Departure Latest Vital Signs Vital Signs Date Time Temp Pulse Resp B/P (MAP) Pulse Ox O2 Delivery O2 Flow Rate FiO2 08/10/17 19:44 ??? 08/10/17 19:30 121/107 (112) 08/10/17 19:29 13 90 08/10/17 18:12 3.0 08/10/17 18:01 97.8 Room Air Impression: Primary Impression: Atrial fibrillation Condition: Improved Disposition: HOME OR SELF-CARE Referrals: LILIA ORTIZ MD (PCP) Patient Instructions: A-fib (Atrial Fibrillation) (ED) Additional Instructions: Get plenty of rest. Increase fluid intake. Follow up with Cardiology on Saturday as scheduled. Return to the ER if condition worsens. Take the Diltiazem 120mg with your noon meal. Increase fluid intake. If you have any shortness of breath return to the ER. Problem Qualifiers Primary Impression: Atrial fibrillation Atrial fibrillation type: persistent Qualified Codes: I48.1 - Persistent atrial fibrillation AASHISH OLIVARES Aug 10, 2017 18:09
[2017-08-10] MEDS ORDERED: DILTIAZEM CD 120 MG CAPCR PO ONE ×2 (18:20→19:35)
[2017-08-10] MEDS ORDERED: DILTIAZEM 5 MG/ML 5ML IVPUSH IVP ONE (18:20)
[2017-08-10 18:39] LABS: PLATELET COUNT, AUTOMATED 206 K/uL (150-450)
--- NOTE | 2017-08-10 18:43 | EKG ---
FACILITY: [facility] [place] PATIENT NAME: REYNA SOLIMAN : [id number] MR: [id number] V: [id number] EXAM DATE: ORDERING PHYSICIAN: AASHISH OLIVARES TECHNOLOGIST: ADÁN Mueller Reason : Blood Pressure : / mmHG Vent. Rate : 140 BPM Atrial Rate : 039 BPM P-R Int : 000 ms QRS Dur : 132 ms QT Int : 334 ms P-R-T Axes : 000 -38 008 degrees QTc Int : 509 ms Atrial fibrillation with rapid ventricular response with premature ventricular or aberrantly conducte d complexes Left axis deviation Right bundle branch block Abnormal ECG When compared with ECG of 08-AUG-2017 10:43, No significant change was found Confirmed by LILIA BURNS ([id number]) on 08/10/2017 9:17:27 PM Referred By: PRESTON Confirmed By:LILIA BURNS
--- NOTE | 2017-08-10 19:05 | RADIOLOGY IMAGING REPORT ---
FACILITY: [facility] PATIENT NAME: Aba Ballard : 1940 MR: [id number] V: [id number] EXAM DATE: ORDERING PHYSICIAN: AASHISH OLIVARES TECHNOLOGIST: Location: [facility] Patient: Aba Ballard : 1940 Visit/Account:[id number] Date of Sevice: 08/10/2017 Examination: CHEST PA AND LAT Comparison: 07/30/2017 and earlier. History: rapid rate, shortness of breath Findings: Right greater than left small pleural effusions are little changed. Lung base atelectasis. Pulmonary vascular congestion but no definite evidence of edema. No pneumothorax. Cardiac and hilar c ontour is mildly enlarged. Sternotomy and valve replacement. No acute osseous abnormality. IMPRESSION: Minimally changed right greater than left small pleural effusions. There is vascular congestion but n o definite evidence of pulmonary edema. Report Dictated By: Rey Strong MD at 08/10/2017 7:00 PM Report E-Signed By: Rey Strong MD at 08/10/2017 7:03 PM WSN:[id number]
[2017-08-10 19:30] VITALS: BP 121/107
== END 2017-08-10 19:40 | disposition home or self-care (01) ==
LOC: ER 18:10
DX: I48.1 Persistent atrial fibrillation (principal); I45.10 Unspecified right bundle-branch block; R94.31 Abnormal electrocardiogram [ECG] [EKG]
CPT/HCPCS: 71046; 84484; 85025; 93005; 96374; 99284; A9270; J3490; 82040; 82247; 82310; 82374; 82435; 82565; 82947; 84075; 84132; 84155; 84295; 84450; 84460; 84520

== ENCOUNTER 2017-08-12 22:08 | Emergency (ER) | payer MEDICARE ==
[~2017-08-12 22:08] MED LIST changes: -DILT240C PO; -FURO40TA35 PO
--- NOTE | 2017-08-12 22:11 | ER Report ---
History and Physical Time Seen By MD: 22:11 HPI/ROS CHIEF COMPLAINT: Atrial fibrillation HISTORY OF PRESENT ILLNESS: 76-year-old male with a history of atrial fibrillation was brought in by EMS from home with elevated heart rate near 160. Patient states he was advised by his sfdc developer to come in for heart rate of 150 or higher. He is on chronic anticoagulations with Xarelto. Patient's been seen in the ER numerous times for atrial fibrillation with rapid ventricular response. He's been controlled with diltiazem. His dose of diltiazem his been increased. He saw his sfdc developer yesterday in fact. His sfdc developer advised him to follow-up with cardiothoracic surgery. He is a large mural thrombus this calcified in his heart that needs to be removed surgically. Patient denies chest pain. He notes a mild shortness of breath. He denies diaphoresis. REVIEW OF SYSTEMS: Respiratory: No cough, no dyspnea. Cardiovascular: No chest pain, no palpitations. Gastrointestinal: No vomiting, no abdominal pain. Musculoskeletal: No back pain. Allergies: Coded Allergies: No Known Drug Allergies (Verified , 08/12/17) Home Meds Active Scripts Diltiazem Hcl (CARDIZEM CD) 240 Mg Cap.er.24h, 240 MG PO BID for control of atrial fibrillatio, #60 Prov:WEI WOODS DO 08/12/17 Diltiazem Hcl (DILTIAZEM 24HR CD) 180 Mg Cap.er.24h, 180 MG PO DAILY for 30 Days , #30 CAP Prov:[facility]NAL [facility] 07/25/17 Rivaroxaban 20 Mg (XARELTO 20 MG) 20 Mg Tablet, 20 MG PO DAILY for 30 Days, #30 TAB 0 Refills Prov:JUVENAL [facility]ME[facility] 07/25/17 Reported Medications Furosemide (LASIX) 40 Mg Tablet, 1 TAB PO Q8H, TAB 08/12/17 [place]-3 Fatty Acids (FISH OIL) 500 Mg Capsule, 500 MG PO, CAPSULE 04/06/15 Aspirin (ASPIR 81) 81 Mg Tablet.dr, 81 MG PO QDAY, TAB 04/06/15 Omeprazole (OMEPRAZOLE) 40 Mg Capsule.dr, 40 MG PO QDAY, CAP 04/06/15 Bisoprolol Fumarate (BISOPROLOL FUMARATE) 5 Mg Tablet, 5 MG PO QDAY, #10 TAB 04/06/15 Atorvastatin Calcium (ATORVASTATIN CALCIUM) 20 Mg Tablet, 1 TAB PO QDAY, TAB 04/06/15 Glimepiride (GLIMEPIRIDE) 4 Mg Tablet, 4 MG PO QDAY 04/06/15 Metformin Hcl (METFORMIN HCL) 1,000 Mg Tablet, 1 TAB PO BID, TAB 04/06/15 Reviewed Nurses Notes: Yes Old Medical Records Reviewed: Yes Hx Substance Use Disorder: No Hx Alcohol Use: No Constitutional Vital Sign - Last 24 Hours 08/12/17 08/12/17 08/12/17 08/12/17 22:08 22:10 22:13 22:20 Pulse ??? 149 Resp 22 B/P (MAP) 134/94 134/94 (107) Pulse Ox 94 O2 Delivery Nasal Cannula O2 Flow Rate 2.0 08/12/17 08/12/17 08/12/17 08/12/17 22:23 22:30 22:38 22:53 Pulse 170 121 104 Resp 28 B/P (MAP) 104/69 (81) Pulse Ox 94 93 94 08/12/17 08/12/17 08/12/17 08/12/17 23:00 23:04 23:08 23:11 Pulse ??? 116 B/P (MAP) 98/71 (80) 121/89 (100) 120/89 (99) Pulse Ox 93 Physical Exam General Appearance: The patient is alert, has no immediate need for airway protection and no current signs of toxicity. Vital signs stable, tachycardia to the 140s Eyes: Pupils equal and round no injection. Respiratory: Chest is non tender, lungs are clear to auscultation. Cardiac: Irregular rate and rhythm, no murmur Gastrointestinal: Abdomen is soft and non tender, no masses, bowel sounds normal. Musculoskeletal: Neck: Neck is supple and non tender. No JVD Extremities have full range of motion and are non tender. Skin: No rashes or lesions. DIFFERENTIAL DIAGNOSIS: After history and physical exam differential diagnosis was considered for cardiac ischemia, atrial fibrillation, shortness of breath, pulmonary embolism, Medical Decision Making Data Points Result Diagram: 08/12/17214908/12/172149 Laboratory Hematology Test 08/12/17 21:50 Red Blood Count 4.42 M/uL (4.00-5.60) Mean Corpuscular Volume 94.1 fL (80.0-96.0) Mean Corpuscular Hemoglobin 32.5 pg (26.0-33.0) Mean Corpuscular Hemoglobin Concent 34.5 g/dL (32.0-36.0) Red Cell Distribution Width 14.3 % (11.5-14.5) Mean Platelet Volume 8.2 fL (7.2-11.1) Neutrophils (%) (Auto) 58.8 % (39.4-72.5) Lymphocytes (%) (Auto) 28.8 % (17.6-49.6) Monocytes (%) (Auto) 10.8 % (4.1-12.4) Eosinophils (%) (Auto) 1.0 % (0.4-6.7) Basophils (%) (Auto) 0.6 % (0.3-1.4) Nucleated RBC Relative Count (auto) 0.1 /100WBC Neutrophils # (Auto) 3.5 K/uL (2.0-7.4) Lymphocytes # (Auto) 1.7 K/uL (1.3-3.6) Monocytes # (Auto) 0.6 K/uL (0.3-1.0) Eosinophils # (Auto) 0.1 K/uL (0.0-0.5) Basophils # (Auto) 0.0 K/uL (0.0-0.1) Nucleated RBC Absolute Count (auto) 0.01 K/uL Sodium Level 135 mmol/L (137-145) Potassium Level 3.6 mmol/L (3.5-5.0) Chloride Level 93 mmol/L (98-107) Carbon Dioxide Level 26 mmol/L (22-30) Blood Urea Nitrogen 16 mg/dl (9-21) Creatinine 1.10 mg/dl (0.66-1.25) Glomerular Filtration Rate Calc > 60.0 Random Glucose 222 mg/dl (75-110) Calcium Level 9.0 mg/dl (8.4-10.2) Total Bilirubin 1.1 mg/dl (0.2-1.3) Aspartate Amino Transf (AST/SGOT) 28 U/L (0-35) Alanine Aminotransferase (ALT/SGPT) 26 U/L (0-56) Alkaline Phosphatase 59 U/L (0-126) Troponin I 0.050 ng/ml Total Protein 6.9 gm/dl (6.3-8.2) Albumin 4.1 g/dl (3.5-5.0) Chemistry Test 08/12/17 21:50 White Blood Count 6.0 k/uL (4.5-11.0) Red Blood Count 4.42 M/uL (4.00-5.60) Hemoglobin 14.4 g/dL (14.0-18.0) Hematocrit 41.6 % (42.0-52.0) Mean Corpuscular Volume 94.1 fL (80.0-96.0) Mean Corpuscular Hemoglobin 32.5 pg (26.0-33.0) Mean Corpuscular Hemoglobin Concent 34.5 g/dL (32.0-36.0) Red Cell Distribution Width 14.3 % (11.5-14.5) Platelet Count 211 K/uL (150-450) Mean Platelet Volume 8.2 fL (7.2-11.1) Neutrophils (%) (Auto) 58.8 % (39.4-72.5) Lymphocytes (%) (Auto) 28.8 % (17.6-49.6) Monocytes (%) (Auto) 10.8 % (4.1-12.4) Eosinophils (%) (Auto) 1.0 % (0.4-6.7) Basophils (%) (Auto) 0.6 % (0.3-1.4) Nucleated RBC Relative Count (auto) 0.1 /100WBC Neutrophils # (Auto) 3.5 K/uL (2.0-7.4) Lymphocytes # (Auto) 1.7 K/uL (1.3-3.6) Monocytes # (Auto) 0.6 K/uL (0.3-1.0) Eosinophils # (Auto) 0.1 K/uL (0.0-0.5) Basophils # (Auto) 0.0 K/uL (0.0-0.1) Nucleated RBC Absolute Count (auto) 0.01 K/uL Glomerular Filtration Rate Calc > 60.0 Calcium Level 9.0 mg/dl (8.4-10.2) Total Bilirubin 1.1 mg/dl (0.2-1.3) Aspartate Amino Transf (AST/SGOT) 28 U/L (0-35) Alanine Aminotransferase (ALT/SGPT) 26 U/L (0-56) Alkaline Phosphatase 59 U/L (0-126) Troponin I 0.050 ng/ml Total Protein 6.9 gm/dl (6.3-8.2) Albumin 4.1 g/dl (3.5-5.0) EKG/Imaging EKG Interpretation 12 lead EK Rhythm: Atrial fibrillation rate with RVR 142 bpm [place]: normal QRS: normal ST segments: normal, no change compared to previous EKG Imaging X-ray: Single view portable chest x-ray was obtained. I viewed the images myself on the PACS system. My interpretation of the images is: Right pleural effusion, lung flynn are clear,? Mild pulmonary vascular congestion. The radiologist interpretation had no clinically significant variation from this interpretation. ED Course/Re-evaluation Clinical Indication for ER IV: IV Access ED Course Patient was admitted to an examination room. H&P was done. The differential diagnoses was considered. On clinical exam. Patient has atrial fibrillation with rapid ventricular response. Morphology is a right bundle branch block pattern. It Is unchanged from previous EKGs. Patient's troponin returns in the indeterminate range. His d-dimer is elevated to 1.06. His renal function does not look like it will tolerate contrast. I do not think he has a pulmonary embolism. He recently had a CTA within the last week. He is on Xarelto. His rate is controlled with IV diltiazem 20 mg. He is given 120 mg extended release tablet. In addition to the 180 mg he took at home. A prescription is written for. Cardizem extended release 240 mg twice a day. Patient advised to follow-up with cardiothoracic surgeon as planned on Saturday. Decision to Disposition Date: Aug 12, 2017 Decision to Disposition Time: 22:46 Depart Departure Latest Vital Signs Vital Signs Date Time Temp Pulse Resp B/P (MAP) Pulse Ox O2 Delivery O2 Flow Rate FiO2 08/12/17 23:11 116 120/89 (99) 93 08/12/17 22:23 28 08/12/17 22:20 2.0 08/12/17 22:10 Nasal Cannula Impression: Primary Impression: Atrial fibrillation with RVR Condition: Improved Disposition: HOME OR SELF-CARE Referrals: LILIA ORTIZ MD (PCP) New Scripts Diltiazem Hcl (CARDIZEM CD) 240 Mg Cap.er.24h 240 MG PO BID for control of atrial fibrillatio, #60 Prov: WEI WOODS DO 08/12/17 Patient Instructions: A-fib (Atrial Fibrillation) (ED) Additional Instructions: Follow-up with cardiovascular surgeon as recommended on Saturday WEI WOODS DO Aug 12, 2017 22:12
[2017-08-12] MEDS ORDERED: FURO40TA35 PO (22:13)
[2017-08-12] MEDS ORDERED: DILTIAZEM 5 MG/ML 5ML IVPUSH IVP ONE (22:20)
[2017-08-12 22:31] LABS: PLATELET COUNT, AUTOMATED 211 K/uL (150-450)
[2017-08-12] MEDS ORDERED: DILT240C PO (22:48)
--- NOTE | 2017-08-12 22:54 | RADIOLOGY IMAGING REPORT ---
FAC[place]: [facility] [place]IENT NAME: Aba Ballard : 1940 MR: [id number] V: [id number] EXAM DATE: ORDERING PHYSICIAN: WEI WOODS TECHNOLOGIST: Location: [facility] Patient: Aba Ballard : 1940 Visit/Account:[id number] Date of Sevice: 08/12/2017 PORTABLE CHEST: Indication: Atrial fibrillation. Technique: A single frontal film was obtained. Comparison: 08/10/2017 Skeletal and soft tissue structures: Intact and unchanged. Heart and mediastinum: Stable. Lung flynn: There is persistent mild pulmonary vascular congestion. There is parenchymal consolidati on at the right lung base, which may represent atelectasis. No new opacities are identified. Pleural spaces: A small right effusion persists. Minimal left effusion is suspected. Impression: Overall, there is no significant change. Report Dictated By: Abdullahi Bunch MD at 08/12/2017 10:47 PM Report E-Signed By: Abdullahi Bunch MD at 08/12/2017 10:50 PM WSN:[id number]
[2017-08-12] MEDS ORDERED: DILTIAZEM CD 120 MG CAPCR PO ONE (23:00)
[2017-08-12 23:11] VITALS: BP 120/89
--- NOTE | 2017-08-13 05:10 | EKG ---
FACILITY: [facility] [place] PATIENT NAME: REYNA SOLIMAN : [id number] MR: [id number] V: [id number] EXAM DATE: ORDERING PHYSICIAN: WEI WOODS TECHNOLOGIST: AMRIK Test Reason : CARDIAC Blood Pressure : / mmHG Vent. Rate : 142 BPM Atrial Rate : 163 BPM P-R Int : 000 ms QRS Dur : 138 ms QT Int : 346 ms P-R-T Axes : 000 -29 -18 degrees QTc Int : 532 ms Atrial fibrillation with rapid ventricular response Right bundle branch block Abnormal ECG When compared with ECG of 10-AUG-2017 18:05, No significant change was found Confirmed by ELIZABETH JUAREZ ([id number]) on 08/13/2017 6:04:56 AM Referred By: Confirmed By:ELIZABETH JUAREZ
== END 2017-08-12 23:15 | disposition home or self-care (01) ==
LOC: ER 22:17
DX: I48.2 Chronic atrial fibrillation (principal); Z79.01 Long term (current) use of anticoagulants
CPT/HCPCS: 71045; 84484; 85025; 93005; 96374; 99284; A9270; J3490; 82040; 82247; 82310; 82374; 82435; 82565; 82947; 84075; 84132; 84155; 84295; 84450; 84460; 84520

== ENCOUNTER → 2017-08-12 | Outpatient (CLI) | payer MEDICARE ==
[~2017-08-12] MED LIST changes: +DILT240C PO; +FURO40TA35 PO
== END ==
LOC: AMB 21:38
PROVIDERS: ATTEND Nurse Practitioner
DX: R00.0 Tachycardia, unspecified (principal); I48.91 Unspecified atrial fibrillation
CPT/HCPCS: A0425; A0427

== ENCOUNTER → 2017-08-14 | Outpatient (CLI) | payer MEDICARE ==
[~2017-08-14] MED LIST changes: +DILT240C PO; +FURO40TA35 PO
== END ==
LOC: LAB 10:53
PROVIDERS: ATTEND Internal Medicine Cardiovascular Disease
DX: I48.91 Unspecified atrial fibrillation (principal)
CPT/HCPCS: 36415; 82310; 82374; 82435; 82565; 82947; 84132; 84295; 84520

== ENCOUNTER → 2017-09-02 | Outpatient (REF) | payer MEDICARE | LOC: LAB 11:23 | PROVIDERS: ATTEND Family Medicine | DX: I48.91 Unspecified atrial fibrillation (principal) | CPT/HCPCS: 80162 ==

== ENCOUNTER → 2017-09-06 | Outpatient (CLI) | payer MEDICARE | LOC: LAB 10:57 | PROVIDERS: ATTEND Internal Medicine Cardiovascular Disease | DX: I48.91 Unspecified atrial fibrillation (principal); I42.9 Cardiomyopathy, unspecified; Z79.899 Other long term (current) drug therapy | CPT/HCPCS: 36415; 80162; 82310; 82374; 82435; 82565; 82947; 84132; 84295; 84520 ==

== ENCOUNTER → 2017-11-08 | Outpatient (CLI) | payer MEDICARE | LOC: LAB 10:17 | PROVIDERS: ATTEND Internal Medicine Cardiovascular Disease | DX: I50.22 Chronic systolic (congestive) heart failure (principal) | CPT/HCPCS: 36415; 82310; 82374; 82435; 82565; 82947; 83880; 84132; 84295; 84520 ==

== ENCOUNTER 2018-05-15 19:33 | Emergency (ER) | payer MEDICARE ==
[~2018-05-15 19:33] MED LIST changes: -METF-421 PO; +METF-452 PO
--- NOTE | 2018-05-15 19:55 | ER Report ---
History and Physical Time Seen By MD: 19:55 HPI/ROS CHIEF COMPLAINT: Possible flu HISTORY OF PRESENT ILLNESS: This is a 77-year-old male who presents to the emergency department for possible flu. Patient states that about 2 weeks ago he had aches and chills, follow-up with his primary care provider when he had a cough as well, was given Tylenol with Codeine. Patient was instructed to come to the ER for full evaluation. No fevers or chills at this time. No cough, no headaches, no rashes, no chest pain or short of breath. REVIEW OF SYSTEMS: Respiratory: No cough, no dyspnea. Cardiovascular: No chest pain, no palpitations. Gastrointestinal: No vomiting, no abdominal pain. Musculoskeletal: No back pain. Allergies: Coded Allergies: No Known Drug Allergies (Verified , 05/15/18) Home Meds Active Scripts Diltiazem Hcl (CARDIZEM CD) 240 Mg Cap.er.24h, 240 MG PO BID for control of atrial fibrillatio, #60 Prov:WEI WOODS DO 08/12/17 Diltiazem Hcl (DILTIAZEM 24HR CD) 180 Mg Cap.er.24h, 180 MG PO DAILY for 30 Days, #30 CAP Prov:JUVENAL ALMEIDA [facility] 07/25/17 Rivaroxaban 20 Mg (XARELTO 20 MG) 20 Mg Tablet, 20 MG PO DAILY for 30 Days, #30 TAB 0 Refills Prov:JUVENAL ALMEIDA [facility] 07/25/17 Reported Medications Furosemide (LASIX) 40 Mg Tablet, 1 TAB PO Q8H, TAB 08/12/17 Waterflow-3 Fatty Acids (FISH OIL) 500 Mg Capsule, 500 MG PO, CAPSULE 04/06/15 Aspirin (ASPIR 81) 81 Mg Tablet.dr, 81 MG PO QDAY, TAB 04/06/15 Omeprazole (OMEPRAZOLE) 40 Mg Capsule.dr, 40 MG PO QDAY, CAP 04/06/15 Bisoprolol Fumarate (BISOPROLOL FUMARATE) 5 Mg Tablet, 5 MG PO QDAY, #10 TAB 04/06/15 Atorvastatin Calcium (ATORVASTATIN CALCIUM) 20 Mg Tablet, 1 TAB PO QDAY, TAB 04/06/15 Glimepiride (GLIMEPIRIDE) 4 Mg Tablet, 4 MG PO QDAY 04/06/15 Metformin Hcl (METFORMIN HCL) 1,000 Mg Tablet, 1 TAB PO BID, TAB 04/06/15 Past Medical/Surgical History Patient has a past medical and surgical history of hypertension, hypercholesterolemia, myocardial infarction, A. fib, sinus infection, GERD, prostate cancer, prostatectomy, tricuspid and mitral valve repair. Reviewed Nurses Notes: Yes Hx Substance Use Disorder: No Hx Alcohol Use: No Constitutional Vital Sign - Last 24 Hours 05/15/18 20:43 Temp 97.9 Pulse 60 Resp 16 B/P (MAP) 136/73 Pulse Ox 93 O2 Delivery Room Air Physical Exam General Appearance: The patient is alert, has no immediate need for airway protection and no current signs of toxicity. Eyes: Pupils equal and round no injection. Respiratory: Chest is non tender, lungs are clear to auscultation. Cardiac: regular rate and rhythm. Gastrointestinal: Abdomen is soft and non tender, no masses, bowel sounds normal. Musculoskeletal: Neck: Neck is supple and non tender. Extremities have full range of motion and are non tender. Skin: No rashes or lesions. DIFFERENTIAL DIAGNOSIS: After history and physical exam differential diagnosis was considered for influenza, upper respiratory infection. Medical Decision Making Data Points Laboratory Hematology Test 05/15/18 19:38 Influenza Virus Type A (PCR) Negative (NEGATIVE) Influenza Virus Type B (PCR) Negative (NEGATIVE) Chemistry Test 05/15/18 19:38 Influenza Virus Type A (PCR) Negative (NEGATIVE) Influenza Virus Type B (PCR) Negative (NEGATIVE) ED Course/Re-evaluation ED Course The patient was admitted to room. A history and physical were obtained. Differential diagnoses were considered. Patient was negative for influenza. The patient had no other symptoms at this time, I did tell him that this is likely an upper respiratory infection which his almost completely passed, continue taking the Tylenol with Codeine as needed for his primary care provider prescribed. Patient expressed understanding and was discharged home. Decision to Disposition Date: May 15, 2018 Decision to Disposition Time: 20:56 Depart Departure Latest Vital Signs Vital Signs Date Time Temp Pulse Resp B/P (MAP) Pulse Ox O2 Delivery O2 Flow Rate FiO2 05/15/18 20:43 97.9 60 16 136/73 93 Room Air Impression: Primary Impression: Upper respiratory infection Condition: Improved Disposition: HOME OR SELF-CARE Referrals: LILIA ORTIZ MD (PCP) Patient Instructions: Upper Respiratory Infection (ED) Additional Instructions: Continue drinking plenty of fluids. Get plenty of rest. Continue taking the medications that her primary care provider prescribed. Return to the ER for any concerns or worsening symptoms. Problem Qualifiers Primary Impression: Upper respiratory infection URI type: unspecified URI Qualified Codes: J06.9 - Acute upper respiratory infection, unspecified JUVENAL ALMEIDA [employer]-BC May 15, 2018 19:55
[2018-05-15 20:43] VITALS: BP 136/73
== END 2018-05-15 21:06 | disposition home or self-care (01) ==
LOC: ER 19:59
DX: J06.9 Acute upper respiratory infection, unspecified (principal); I10 Essential (primary) hypertension; I48.91 Unspecified atrial fibrillation; Z85.46 Personal history of malignant neoplasm of prostate
CPT/HCPCS: 87502; 99282

== ENCOUNTER → 2018-06-27 | Outpatient (CLI) | payer MEDICARE | LOC: LAB 09:43 | PROVIDERS: ATTEND Internal Medicine Cardiovascular Disease | DX: I71.2 Thoracic aortic aneurysm, without rupture (principal); I50.20 Unspecified systolic (congestive) heart failure; I42.9 Cardiomyopathy, unspecified | CPT/HCPCS: 36415; 82310; 82374; 82435; 82565; 82947; 84132; 84295; 84520 ==

== ENCOUNTER → 2018-07-04 | Outpatient (CLI) | payer MEDICARE ==
[~2018-07-04] MED LIST changes: +NS(*) 0.9% 50 ML BAG 50 ML ONE
--- NOTE | 2018-07-04 16:44 | RADIOLOGY IMAGING REPORT ---
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 Reconstruction of the source data set includes multiplanar 2D in the sagittal an d coronal planes, and 3D coronal thin slab MIP series. Buttonhole Machine Operator images have been stored on PACS . Contrast: 75 mL of IV Isovue 370. One of the following dose optimization techniques was utilized in the performance of this exam: Autom ated exposure control; adjustment of the mA and/or kV according to the patient's size; or use of an i terative reconstruction technique. Specific details can be referenced in the facility's radiology C T exam operational policy. COMPARISON STUDIES: Chest x-ray 08/12/2017. CTA 07/25/2017 FINDINGS: Angiographic findings: Thoracic aorta: Ascending thoracic aorta is essentially stable with fusiform dilatation measuring 4 .3 x 4.1 cm. Valve is tricuspid. Arch and descending thoracic aorta normal in caliber. Other vasculature: Right brachiocephalic and left common carotids have a conjoined origin from the arch. Visualized upper abdominal vasculature is unremarkable. Additional non-angiographic findings: Heart: Tricuspid and mitral valve replacements. 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 Pacemaker lead tips in the right atrium and right ventricle. Lungs are well aerated. No pulmonary nodule or acute infiltrate. Sternotomy is intact. Degenerative c hanges in the spine. Small nonobstructive renal stones bilaterally. Stable hypodensity in lateral asp ect of the dome of segment 2 in the liver presumably is a cyst or hemangioma. Incidental anterolatera l accessory splenule with an additional splenule below the hilus. Fecal material in visualized colon. IMPRESSION: 1. Stable aneurysmal dilatation of the ascending thoracic aorta. 2. No significant acute finding in the chest. Multiple stable benign findings, as above. Report Dictated By: Adriel Leary MD at 07/04/2018 4:31 PM Report E-Signed By: Adriel Leary MD at 07/04/2018 4:39 PM WSN:[email or web address]
== END ==
LOC: CT 01:09
PROVIDERS: ATTEND Internal Medicine Cardiovascular Disease
DX: I71.4 Abdominal aortic aneurysm, without rupture (principal)
CPT/HCPCS: 71275; J7050